=== PATIENT | female | born 1950 | race Two or more races ===

== ENCOUNTER 2016-05-21 12:31 | Emergency (ER) | payer OTHER ==
[~2016-05-21] VITALS: Ht 162.6 cm; Wt 92.6 kg
[~2016-05-21 12:31] MED LIST: ALBUTEROL SULF8.5 GM IH; CHLORTHALIDONE25 MG PO; DIURETIC PO; DIURETIC SOFTGE50 MG PO; DONEPEZIL HCL10 MG PO; DULERA 100 MCG/13 GM IH; DULERA IH; LEVOFLOXACIN500 MG PO; LISINOPRIL10 MG PO; METFORMIN HCL500 MG PO; MONTELUKAST SOD10 MG PO; PREDNISONE20 MG PO; PROAIR HFA8.5 GM IH; SPIRIVA1 INHALATI IH
[2016-05-21] MEDS ORDERED: BENZONATATE100 MG PO (12:59)
[2016-05-21] MEDS ORDERED: DULERA 100 MCG/13 GM IH (13:02)
[2016-05-21 13:17] LABS: HEMATOCRIT 37.3 % (36.0-46.0); MCHC 31.9 G/DL (30.0-36.0); MCV 84.6 FL (83-99); MEAN PLAT.VOLUME 9.7 uM^3 (9.5-12.4); PLATELET COUNT 359 K/uL (156-360); RBC DIS.WIDTH-CV 12.5 % (11.8-14.6); RBC DIS.WIDTH-SD 38.5 % (39-53); RED BLOOD COUNT 4.41 M/uL (3.80-5.20); WHITE BLOOD COUNT 10.7 K/uL (4.1-10.2)
[2016-05-21 13:22] LABS: CHLORIDE 102 mEq/L (99-109); POTASSIUM 4.5 mEq/L (3.7-5.4); SODIUM 139 mEq/L (136-147)
[2016-05-21 13:24] LABS: GLUCOSE 97 mg/dL (70-99)
[2016-05-21 13:26] LABS: ANION GAP 11 MEQ/L (2-14); TOTAL BILIRUBIN 0.3 mg/dL (0.0-1.0)
[2016-05-21 13:28] LABS: ALKALINE PHOSPHATASE 107 IU/L (3-129); GFR ESTIMATE (CALCULATED) 48 mL/min/
[2016-05-21 13:29] LABS: UREA NITROGEN (BUN) 25 mg/dL (9-23)
[2016-05-21] MEDS ORDERED: INDOCIN50 MG PO (14:21)
[2016-05-21] MEDS ORDERED: COLCRYS0.6 MG PO (14:21)
[2016-05-21 15:00] VITALS: BP 112/84
== END 2016-05-21 15:03 | disposition home or self-care (01) ==
LOC: EME 12:31
PROVIDERS: Nurse Practitioner Family
DX: M10.9 Gout, unspecified (principal); M79.671 Pain in right foot; E86.0 Dehydration; N28.9 Disorder of kidney and ureter, unspecified; E11.9 Type 2 diabetes mellitus without complications; I10 Essential (primary) hypertension
CPT/HCPCS: 71020; 73630; 80053; 83880; 84550; 85027; 94640; 99281; 99284